=== PATIENT | female | born 1960 | race Two or more races ===

== ENCOUNTER 2017-06-24 09:23 | Inpatient (IN) | payer OTHER ==
[~2017-06-24] VITALS: Ht 167.6 cm; Wt 86.6 kg
--- NOTE | 2017-06-24 09:40 | NUR ---
PRESENTS TO ER C/O CONSTANT EPIGASTRIC PAIN SINCE 0200 TODAY WITH NAUSEA AND VOMITING. PATIENT A/OX 4. BREATHING EVEN AND UNLABORED. NO SOB. VITALS STABLE. SAFETY AND COMFORT MEASURES IN PLACE. AWAITING MD ORDERS.
--- NOTE | 2017-06-24 09:50 | NUR ---
NEW IV STARTED ON LAC, 20 G. BLOOD DRAWN AND SENT TO LAB.
[2017-06-24] MEDS ORDERED: ONDANSETRON HCL/PF 4 MG/2 ML VIAL ONE (09:58)
[2017-06-24] MEDS ORDERED: ONDANSETRON HCL/PF 4 MG/2 ML VIAL IVP ONE (10:00)
[2017-06-24 10:01] LABS: BASOPHILS # (AUTO) 0.2 /CMM (0.0-0.2); BASOPHILS % (AUTO) 1.5 % (0.0-2.0); EOSINOPHILS # (AUTO) 0.1 /CMM (0.0-0.7); EOSINOPHILS % (AUTO) 0.7 % (0.0-6.0); HEMATOCRIT 42 % (33-45); LYMPHOCYTES # (AUTO) 1.3 /CMM (0.8-4.8); LYMPHOCYTES % (AUTO) 9.1 % (20.0-44.0); MEAN CORPUSCULAR HEMOGLOBIN 27 PG (26.0-33.0); MEAN CORPUSCULAR HGB CONC 33 g/dl (31.0-36.0); MEAN CORPUSCULAR VOLUME 82 fL (82-100); MONOCYTES # (AUTO) 0.7 /CMM (0.1-1.30); MONOCYTES % (AUTO) 5.1 % (2.0-12.0); NEUTROPHILS # (AUTO) 11.5 /CMM (1.8-8.9); NEUTROPHILS % (AUTO) 83.6 % (43.0-81.0); PLATELET COUNT (AUTO) 271 /CMM (150-450); RDW COEFFICIENT OF VARIATION 13.5 (11.5-15.0); RED BLOOD CELL COUNT(AUTO) 5.21 MIL/uL (4.0-5.2); WHITE BLOOD COUNT (AUTO) 13.8 K/uL (4.3-11.0)
[2017-06-24 10:10] LABS: ALANINE AMINOTRANSFERASE 676 U/L (12-78); ALKALINE PHOSPHATASE 209 U/L (46-116); ASPARTATE AMINOTRANSFERASE 705 U/L (15-37); BILIRUBIN,DIRECT 1.2 mg/dL (0.0-0.2); BILIRUBIN,TOTAL 1.7 mg/dL (0.2-1.0); CALCIUM, SERUM 9.3 mg/dL (8.5-10.1); GLUCOSE 213 mg/dL (74-106); TOTAL PROTEIN, SERUM 8.1 g/dL (6.4-8.2); UREA NITROGEN, BLOOD 17 mg/dL (7-18)
[2017-06-24 10:12] LABS: LIPASE 13888 U/L (73-393); TROPONIN I < 0.017 ng/mL (0.00-0.056)
[2017-06-24] MEDS ORDERED: MAG HYDROX/AL HYDROX/SIMETH 30 ML UDC ONE (10:15)
[2017-06-24] MEDS ORDERED: LIDOCAINE VISCOUS 2% UD 15 ML UDC ONE (10:15)
[2017-06-24] MEDS ORDERED: LIDOCAINE VISCOUS 2% UD 15 ML UDC MM ONE (10:30)
[2017-06-24] MEDS ORDERED: MAG HYDROX/AL HYDROX/SIMETH 30 ML UDC PO ONE (10:30)
[2017-06-24] MEDS ORDERED: IOHEXOL-300 100 ML VIAL IV ONE (10:55)
[2017-06-24] MEDS ORDERED: IV NS 0.9% 250 ML IV ONE (10:56)
[2017-06-24] MEDS ORDERED: MORPHINE SULFATE INJ 2 MG/ML DISP.SYRIN IV ONE (11:00)
[2017-06-24] MEDS ORDERED: IV NS 0.9% 1,000 ML BAG IV ONE (11:00)
--- NOTE | 2017-06-24 11:05 | NUR ---
PATIENT TAKEN TO CT VIA STRETCHER.
[2017-06-24] MEDS ORDERED: MORPHINE SULFATE INJ 10 MG/ML DISP.SYRIN ONE (11:06)
[2017-06-24] MEDS ORDERED: METF500T4 PO (11:19)
--- NOTE | 2017-06-24 11:20 | NUR ---
PATIENT RETURNED FROM CT IN STABLE CONDITION.
[2017-06-24 11:33] LABS: CARBON DIOXIDE 22 mmol/L (21-32); CHLORIDE 102 mmol/L (98-107); POTASSIUM 3.8 mmol/L (3.5-5.1); SODIUM SERUM 140 mmol/L (136-145)
[2017-06-24] MEDS ORDERED: MORPHINE SULFATE INJ 2 MG/ML DISP.SYRIN IV PRN (12:00)
--- NOTE | 2017-06-24 12:40 | NUR ---
REPORT GIVEN TO RNTYRA FOR ADMISSION
--- NOTE | 2017-06-24 12:48 | NUR ---
PATIENT TRANSPORTED TO [facility] VIA STRETCHER FOR ADMISSION. RN, TYRA TO PROVIDE COLBY.
[2017-06-24 13:00] VITALS: BP 138/68
--- NOTE | 2017-06-24 13:15 | NUR ---
MS/RN New admission New admission from emergency room with abdominal pain, CT scan of abdomen showing acute pancreatitis. Fully admitted, orders entered by Dr Turner. Patient kept clean and comfortable. Will continue to monitor and ensure safety.
[2017-06-24] MEDS: ENOXAPARIN SODIUM 40 MG/0.4 ML DISP.SYRIN SQ SCH (14:17)
[2017-06-24] MEDS: IV NS 0.9% 1,000 ML IV PRN ×2 (14:32→23:52)
--- NOTE | 2017-06-24 15:36 | NUR ---
MS/RN IV Fluisd IV fluids infusing at 150ml/hr, no signs of infiltration seen.
[2017-06-24 16:00] VITALS: BP 142/76
[2017-06-24] MEDS: ONDANSETRON HCL/PF 4 MG/2 ML VIAL IVP PRN ×2 (17:48→23:51)
[2017-06-24] MEDS: MORPHINE SULFATE INJ 10 MG/ML DISP.SYRIN IV PRN (18:23)
--- NOTE | 2017-06-24 18:36 | NUR ---
MS/RN End note Continues to complain of nausea and pain, zofran and morphine last administered at 1830. Family at bedside, updated as to plan of care. Patient kept clean and comfortable. Will endorse to motion picture narrator
[2017-06-24 20:00] VITALS: BP 145/74
--- NOTE | 2017-06-24 20:00 | NUR ---
MS RN NOTE: PATIENT RESTING IN BED, NO ACUTE DISTRESS NOTED. BREATHING EVEN AND UNLABORED, NO SOB NOTED. IV TO LAC IN PLACE INFUSING NS AT 150 ML/HR. BED LOCKED AND IN LOWEST POSITION, CALL LIGHT IN REACH. WILL CONTINUE TO MONITOR.
[2017-06-25] VITALS (10 sets, daily range): BP systolic 105–135; BP diastolic 60–71
--- NOTE | 2017-06-25 00:04 | NUR ---
MS RN NOTE: PATIENT COMPLAINS OF NAUSEA, ZOFRAN 4MG IV GIVEN PER MD ORDER. WILL CONTINUE TO MONITOR.
--- NOTE | 2017-06-25 06:20 | NUR ---
MS RN NOTE: PATIENT RESTING IN BED, NO ACUTE DISTRESS NOTED. BREATHING EVEN AND UNLABORED, NO SOB NOTED. IV TO LAC IN PLACE INFUSING NS AT 150 ML/HR. BED LOCKED AND IN LOWEST POSITION, CALL LIGHT IN REACH. WILL ENDORSE TO DAY NURSE TO CONTINUE WITH PLAN OF CARE.
[2017-06-25 06:27] LABS: BASOPHILS % (AUTO) 0.3 % (0.0-2.0); HEMATOCRIT 38 % (33-45); HEMOGLOBIN 12.6 g/dL (11.5-14.8); LYMPHOCYTES # (AUTO) 1.3 /CMM (0.8-4.8); LYMPHOCYTES % (AUTO) 11.4 % (20.0-44.0); MEAN CORPUSCULAR HEMOGLOBIN 28 PG (26.0-33.0); MEAN CORPUSCULAR HGB CONC 33 g/dl (31.0-36.0); MEAN CORPUSCULAR VOLUME 83 fL (82-100); MONOCYTES # (AUTO) 0.4 /CMM (0.1-1.30); MONOCYTES % (AUTO) 3.9 % (2.0-12.0); NEUTROPHILS # (AUTO) 9.3 /CMM (1.8-8.9); NEUTROPHILS % (AUTO) 84.4 % (43.0-81.0); PLATELET COUNT (AUTO) 239 /CMM (150-450); RDW COEFFICIENT OF VARIATION 14.8 (11.5-15.0); RED BLOOD CELL COUNT(AUTO) 4.59 MIL/uL (4.0-5.2)
[2017-06-25 06:48] LABS: ALBUMIN 3.1 g/dL (3.4-5.0); BILIRUBIN,DIRECT 3.6 mg/dL (0.0-0.2); BILIRUBIN,TOTAL 4.3 mg/dL (0.2-1.0); TOTAL PROTEIN, SERUM 7.2 g/dL (6.4-8.2)
[2017-06-25 06:54] LABS: THYROID STIMULATING HORMONE 0.33 uIU/mL (0.358-3.74)
[2017-06-25 06:58] LABS: CREATININE 0.6 mg/dL (0.6-1.3); MAGNESIUM 2.1 mg/dL (1.8-2.4); POTASSIUM 3.8 mmol/L (3.5-5.1)
--- NOTE | 2017-06-25 07:20 | NUR ---
RN INITIAL NOTES REPORT RECEIVED AT THE BEDSIDE. PATIENT IS SLEEPING, NO SOB OR DISTRESS NOTED AT THIS TIME. PATIENT DOES NOT APPEAR TO BE IN PAIN, NO FACIAL GRIMACE NOTED. BED IN A LOW POSITION, CALL LIGHT WITHIN PATIENT REACH. WILL CONTINUE TO MONITOR.
--- NOTE | 2017-06-25 08:08 | NUR ---
TEXTED DR. MASCORRO FOR MRI APPROVAL.
[2017-06-25] MEDS: IV NS 0.9% 1,000 ML IV PRN ×3 (08:36→22:23)
[2017-06-25] MEDS: PANTOPRAZOLE 40 MG VIAL IV SCH (08:36)
[2017-06-25] MEDS: ENOXAPARIN SODIUM 40 MG/0.4 ML DISP.SYRIN SQ SCH (08:39)
[2017-06-25] MEDS: MORPHINE SULFATE INJ 10 MG/ML DISP.SYRIN IV PRN ×2 (09:27→13:14)
--- NOTE | 2017-06-25 09:32 | NUR ---
RN NOTES RECEIVED CALL FROM IMAGING THAT PATIENT WILL HAVE MRCP AT 1000. PT HAS BEEN NPO ASIDE FROM ICE CHIPS PER MD ORDER.
--- NOTE | 2017-06-25 09:49 | NUR ---
MRI APPROVED. TABLETIME 10AM, PATIENT NPO 4 HRS BEFORE EXAM. MRI CHECKLIST COMPLETED.
--- NOTE | 2017-06-25 14:33 | NUR ---
RN NOTES CALLED DR ALBERTO PATIENT PAIN MEDICATION IS NOT LASTING LONG ENOUGH TO COVER Q4H. DR ALBERTO ASKED TO CHANGE TIMING TO 2MG MORPHINE Q3H. ORDERS CARRIED OUT.
--- NOTE | 2017-06-25 14:41 | NUR ---
RN NOTES CALLED DR BROCK AND RELAYED RESULTS OF MRCP. MD BELIEVES PATIENT MAY HAVE PASSED A STONE. MR ORDERED OXY 20MG Q12H SCHEDULED, DAILY BILIRUBIN LEVEL AND ICE CHIPS ONLY BY MOUTH. WILL PLACE AND CARRY OUT ORDERS.
[2017-06-25] MEDS ORDERED: MORPHINE SULFATE INJ 10 MG/ML DISP.SYRIN IV PRN (15:00)
[2017-06-25] MEDS: oxyCODONE HCL SR 20MG TAB.SR.12H PO SCH (15:07)
--- NOTE | 2017-06-25 18:48 | NUR ---
CLOSING NOTES NO SIGNIFICANT CHANGES IN PATIENT CONDITION THROUGHOUT THE SHIFT. PATIENT IS RESTING COMFORTABLY IN BED. NO SOB OR DISTRESS NOTED AT THIS TIME. PATIENT REPORTS TOLERABLE PAIN AT THIS TIME. BED IN A LOW POSITION, CALL LIGHT WITHIN PATIENT REACH. WILL ENDORSE FOR COLBY.
[2017-06-25] MEDS: ONDANSETRON HCL/PF 4 MG/2 ML VIAL IVP PRN (19:04)
--- NOTE | 2017-06-25 19:35 | NUR ---
MS RN NOTE RECEIVED PATIENT FROM DAY SHIFT, PATIENT IS ALERT AND ORIENTEDX3, CYMRAES SPEAKER, NO S/S OF RESPIRATORY DISTRESS OR PAIN AT THIS TIME. IV ON LEFT AC IS PATENT AND INTACT, FLUID IS RUNNING. SRX2, BED IN LOW POSITION, CALL LIGHT WITHIN REACH, WILL CONTINUE TO MONITOR PATIENT.
[2017-06-26 05:19] VITALS: BP 122/69
[2017-06-26] MEDS: IV NS 0.9% 1,000 ML IV PRN ×2 (06:02→15:06)
--- NOTE | 2017-06-26 06:47 | NUR ---
MS RN NOTE PATIENT IS SLEEPING IN BED, NO ACUTE EVENT NOTED THROUGHOUT THE SHIFT. IV ON LEFT FA IS PATENT AND INTACT, FLUID IS RUNNING. WILL ENDORSE TO DAY SHIFT NURSE FOR COLBY.
[2017-06-26 06:49] LABS: EOSINOPHILS % (AUTO) 0.1 % (0.0-6.0); HEMATOCRIT 35 % (33-45); HEMOGLOBIN 11.6 g/dL (11.5-14.8); LYMPHOCYTES % (AUTO) 17.4 % (20.0-44.0); MEAN CORPUSCULAR HEMOGLOBIN 28 PG (26.0-33.0); MEAN CORPUSCULAR HGB CONC 33 g/dl (31.0-36.0); MEAN CORPUSCULAR VOLUME 83 fL (82-100); MONOCYTES # (AUTO) 0.6 /CMM (0.1-1.30); MONOCYTES % (AUTO) 5.1 % (2.0-12.0); NEUTROPHILS # (AUTO) 9.1 /CMM (1.8-8.9); NEUTROPHILS % (AUTO) 77.4 % (43.0-81.0); PLATELET COUNT (AUTO) 228 /CMM (150-450); RDW COEFFICIENT OF VARIATION 14.8 (11.5-15.0); RED BLOOD CELL COUNT(AUTO) 4.19 MIL/uL (4.0-5.2); WHITE BLOOD COUNT (AUTO) 11.8 K/uL (4.3-11.0)
[2017-06-26 07:19] LABS: ALBUMIN 2.7 g/dL (3.4-5.0); BILIRUBIN,TOTAL 1.8 mg/dL (0.2-1.0); CALCIUM, SERUM 8.9 mg/dL (8.5-10.1); CREATININE 0.6 mg/dL (0.6-1.3); MAGNESIUM 2.1 mg/dL (1.8-2.4); PHOSPHORUS 2.4 mg/dL (2.5-4.9); POTASSIUM 3.4 mmol/L (3.5-5.1); TOTAL PROTEIN, SERUM 6.8 g/dL (6.4-8.2)
--- NOTE | 2017-06-26 07:25 | NUR ---
RN INITIAL NOTES REPORT RECEIVED AT THE BEDSIDE. PATIENT IS SLEEPING. NO SOB OR DISTRESS NOTED AT THIS TIME. PATIENT DOES NOT APPEAR TO BE IN PAIN, NO FACIAL GRIMACE NOTED. BED IN A LOW POSITION, CALL LIGHT WITHIN PATIENT REACH, WILL CONTINUE TO MONITOR.
[2017-06-26 08:00] VITALS: BP 143/69
[2017-06-26] MEDS: ENOXAPARIN SODIUM 40 MG/0.4 ML DISP.SYRIN SQ SCH (09:25)
[2017-06-26] MEDS: PANTOPRAZOLE 40 MG VIAL IV SCH (09:26)
[2017-06-26] MEDS: oxyCODONE HCL SR 20MG TAB.SR.12H PO SCH ×2 (09:27→21:24)
[2017-06-26] MEDS: ONDANSETRON HCL/PF 4 MG/2 ML VIAL IVP PRN ×2 (09:36→17:32)
[2017-06-26] MEDS: POTASSIUM CL. PREMIX PERIPHER. 50 ML IV SCH ×2 (12:48→13:49)
--- NOTE | 2017-06-26 18:24 | NUR ---
RN CLOSING NOTES NO SIGNIFICANT CHANGES THROUGHOUT THE SHIFT. NO SOB OR DISTRESS NOTED AT THIS TIME. PATIENT DENIES SIGNIFICANT PAIN. BED IN A LOW POSITION, CALL LIGHT WITHIN PATIENT REACH, FAMILY IS AT THE BEDSIDE. WILL ENDORSE FOR COLBY.
--- NOTE | 2017-06-26 19:30 | NUR ---
RN NOTE; RECEIVED PT IN BED AWAKE AND ALERT. BREATHING EVENLY. NO SOB. NAD/ SKIN WARM AND DRY. REPORTED PAIN UNDER CONTROL. DENIED N/V. ON ONGOING IVF HYDRATION ALIDA WELL. NEEDS ATTENDED. CALL LIGHT WITHIN REACH. WILL CONT TO MONITOR
[2017-06-26 20:00] VITALS: BP 145/75
[2017-06-27] MEDS: IV NS 0.9% 1,000 ML IV PRN ×3 (01:35→16:18)
[2017-06-27] MEDS: ONDANSETRON HCL/PF 4 MG/2 ML VIAL IVP PRN ×3 (01:35→16:27)
--- NOTE | 2017-06-27 01:35 | NUR ---
ZOFRAN GIVEN FOR ONE EPISODE OF NON BLOODY VOMITING. WILL CONT TO MONITOR,
--- NOTE | 2017-06-27 05:18 | NUR ---
NEW IV LINE 20G STARTED ON RFT . W/ A GOOD BLOOD DRAW BACK.
--- NOTE | 2017-06-27 06:34 | NUR ---
RN NOTE; PT IN BED DOZING INTERMITTENTLY. BREATHING EVENLY. NO SOB. NAD. NO ACUTE CHANGES DURING THE NIGHT. PAIN UNDER CONTROL . NO MORE EPISODE OF N/V AFTER ZOFRAN GIVEN. IV SITE ON RFA CLEAN AND PATENT. NEEDS ATTENDED. BED LOW LOCKED. CALL LIGHT WITHIN REACH. WILL CONT TO MONITOR AND WILL ENDORSE TO AM SHIFT FOR COLBY
[2017-06-27 07:18] LABS: BASOPHILS % (AUTO) 0.1 % (0.0-2.0); EOSINOPHILS % (AUTO) 0.2 % (0.0-6.0); HEMATOCRIT 33 % (33-45); HEMOGLOBIN 10.9 g/dL (11.5-14.8); LYMPHOCYTES # (AUTO) 2.2 /CMM (0.8-4.8); LYMPHOCYTES % (AUTO) 22.4 % (20.0-44.0); MEAN CORPUSCULAR HEMOGLOBIN 27 PG (26.0-33.0); MEAN CORPUSCULAR HGB CONC 33 g/dl (31.0-36.0); MEAN CORPUSCULAR VOLUME 82 fL (82-100); MONOCYTES # (AUTO) 0.6 /CMM (0.1-1.30); MONOCYTES % (AUTO) 6.2 % (2.0-12.0); NEUTROPHILS # (AUTO) 7.1 /CMM (1.8-8.9); NEUTROPHILS % (AUTO) 71.1 % (43.0-81.0); PLATELET COUNT (AUTO) 219 /CMM (150-450); RDW COEFFICIENT OF VARIATION 14.2 (11.5-15.0)
[2017-06-27 07:54] LABS: ALBUMIN 2.5 g/dL (3.4-5.0); BILIRUBIN,TOTAL 0.8 mg/dL (0.2-1.0); CALCIUM, SERUM 8.5 mg/dL (8.5-10.1); CREATININE 0.4 mg/dL (0.6-1.3); MAGNESIUM 1.9 mg/dL (1.8-2.4); PHOSPHORUS 3.3 mg/dL (2.5-4.9); POTASSIUM 3.1 mmol/L (3.5-5.1); TOTAL PROTEIN, SERUM 6.6 g/dL (6.4-8.2)
[2017-06-27 08:00] VITALS: BP 136/70
--- NOTE | 2017-06-27 08:00 | NUR ---
MS RN NOTES PATIENT IN BED RESTING NO SOB OR ACUTE DISTRESS NOTED. ALERT, ORIENTED X4 PERIPHERAL IV INTACT PATENT ON RIGHT FOREARM. BED IN LOW LOCKED POSITION. CALL LIGHT WITHIN REACH. DENIES ANY PAIN WILL CONTINUE TO MONITOR.
[2017-06-27] MEDS: oxyCODONE HCL SR 20MG TAB.SR.12H PO SCH ×2 (08:59→20:59)
[2017-06-27] MEDS: PANTOPRAZOLE 40 MG VIAL IV SCH (08:59)
[2017-06-27] MEDS: ENOXAPARIN SODIUM 40 MG/0.4 ML DISP.SYRIN SQ SCH (08:59)
[2017-06-27] MEDS: POTASSIUM CHLORIDE 20 MEQ TAB.PRT.SR PO SCH ×3 (11:26→13:00)
--- NOTE | 2017-06-27 13:00 | NUR ---
MS RN NOTES PATIENT NOTED VOMITING AFTER FULL LIQUIDS. PATIENT NOT TOLERATING DIET WELL , DR ALBERTO MADE AWARE STATES TO HOLD D/C.
[2017-06-27] MEDS ORDERED: POTASSIUM CHLORIDE 20 MEQ TAB.PRT.SR PO ONE (15:30)
[2017-06-27 16:00] VITALS: BP 112/72
--- NOTE | 2017-06-27 18:12 | NUR ---
MS RN NOTES PATIENT IN BED RESTING , ALERT, ORIENTED X3. PERIPHERAL IV INTACT PATENT ON RIGHT FOREARM. ALL DUE MEDICATIONS ADMINISTERED. PATIENT DENIES ANY PAIN. ALL NEEDS MET. WILL ENDORSE CARE TO PM SHIFT.
--- NOTE | 2017-06-27 19:30 | NUR ---
RN NOTE; RECEIVED PT IN BED AWAKE AND ALERT W/ SON AT THE BED SIDE. BREATHING EVENLY. NO SOB. NAD/ SKIN WARM AND DRY. REPORTED PAIN UNDER CONTROL.W/ MILD NAUSEA. ON ONGOING IVF HYDRATION ALIDA WELL. NEEDS ATTENDED. CALL LIGHT WITHIN REACH. WILL CONT TO MONITOR
[2017-06-27 20:00] VITALS: BP 141/77
[2017-06-27 20:41] VITALS: BP 141/77
--- NOTE | 2017-06-28 07:03 | NUR ---
RN NOTE; PT IN BED DOZING INTERMITTENTLY. BREATHING EVENLY. NO SOB. NAD. NO ACUTE CHANGES DURING THE NIGHT. PAIN UNDER CONTROL . NO C/O OF N/V . IV SITE ON RFA CLEAN AND PATENT. NEEDS ATTENDED. BED LOW LOCKED. CALL LIGHT WITHIN REACH. WILL CONT TO MONITOR AND WILL ENDORSE TO AM SHIFT FOR COLBY
[2017-06-28] MEDS: IV NS 0.9% 1,000 ML IV PRN (07:11)
--- NOTE | 2017-06-28 07:30 | NUR ---
PT RECEIVED RESTING COMFORTABLY IN BED. NO S/S OR C/O PAIN OR DISTRESS NOTED. SIDE RAILS UP X2, CALL LIGHT LEFT WITHIN REACH. WILL CONTINUE PLAN OF CARE.
[2017-06-28 08:00] VITALS: BP 148/71
[2017-06-28] MEDS: PANTOPRAZOLE 40 MG VIAL IV SCH (09:00)
[2017-06-28] MEDS: ENOXAPARIN SODIUM 40 MG/0.4 ML DISP.SYRIN SQ SCH (09:14)
[2017-06-28] MEDS: oxyCODONE HCL SR 20MG TAB.SR.12H PO SCH (15:14)
--- NOTE | 2017-06-28 15:30 | NUR ---
DISCHARGE INSTRUCTIONS GIVEN ORDERED. ENCOURAGED TO FOLLOW UP WITH PMD INSTRUCTED. ALL QUESTIONS AND CONCERNS ADDRESSED. PATIENT VERBALIZED UNDERSTANDING. MEDICATIONS RECONCILIATION FORM COMPLETED. COPY GIVEN TO PATIENT. IV REMOVED, CATHETER INTACT, PRESSURE DRESSING APPLIED. PATIENT TAKEN TO VEHICLE WITH ALL PERSONAL BELONGINGS, ACCOMPANIED BY STAFF AND FAMILY MEMBER. NO DISTRESS NOTED AT TIME OF DEPARTURE.
== END 2017-06-28 15:30 | disposition home or self-care (01) | DRG 440 ==
LOC: ER 09:25 → MEDSG2 12:41
DX: K85.90 Acute pancreatitis without necrosis or infection, unspecified (principal); K80.50 Calculus of bile duct without cholangitis or cholecystitis without obstruction; E78.5 Hyperlipidemia, unspecified; I10 Essential (primary) hypertension; Z90.49 Acquired absence of other specified parts of digestive tract; Z98.890 Other specified postprocedural states; K21.9 Gastro-esophageal reflux disease without esophagitis; E66.9 Obesity, unspecified; E11.9 Type 2 diabetes mellitus without complications
CPT/HCPCS: 36415; 74181-TC; 80048-TC; 80053-TC; 80061-TC; 80076-TC; 82962-TC; 83690-TC; 83735-TC; 84100-TC; 84443-TC; 84484-TC; 85025-TC; 87081-TC; A4606; C9113; J1650; J2270; J2405; J3480; J7030; J7050; Q9967; Z7610